=== PATIENT | female | born 1970 | race Caucasian/White ===

== ENCOUNTER → 2022-04-08 15:24 | Outpatient (CLI) | payer OTHER, SELFPAY ==
--- NOTE | ~2022-04-08 | US_ITS ---
EXAMINATION: US pelvic complete DATE: 04/08/2022 15:40 INDICATION: Menorrhagia Comparison:No prior studies for comparison. TECHNIQUE: Multiple transabdominal sonographic images of the pelvis performed. FINDINGS: The uterus measures 9.7 x 4.8 x 6.2 cm. There is uterine fibroid on the right measuring 3.8 x 3.6 x 2.8 cm. The endometrial complex measures 6 mm. The right ovary measures 1.8 x 1.3 x 1.4 cm and the left ovary measures 1.8 x 1.1 x 1 cm. There are small follicles in each ovary. Normal doppler signal in both ovaries. There is no free fluid in the pelvis. There are no abnormal masses seen on either side. IMPRESSION: 1. Uterine fibroid measuring up to 3.8 cm. Reviewed, dictated and finalized at location A.
== END ==
PROVIDERS: PCP Internal Medicine; Visit Provider Nurse Practitioner
DX: N93.8 Other specified abnormal uterine and vaginal bleeding (principal); D25.9 Leiomyoma of uterus, unspecified
CPT/HCPCS: 76856

== ENCOUNTER 2022-06-17 01:39 | Day surgery (SDC) | payer OTHER, SELFPAY ==
[2022-06-07 14:59] VITALS: BMI 21.2
--- NOTE | 2022-06-07 15:04 | PC.NURSE ---
Report to the Outpatient Waiting Room, entrance under the green pavilion located off [facility], at time 1000_ on date 06/17/22_. OR Time: 1200 ____. Time changes happen often and if your time is changed the preop area will call you the afternoon before. - You and your visitor will be asked to self-screen and do not enter if you have any COVID symptoms. - Only one visitor and NO children visitors are allowed at this time. - The patient visitor is requested to leave or wait in car when not with patient due to restrictions. - A mask is required within the hospital. Patients may have clear liquids (water, carbonated beverages, clear teas, apple juice) until 3 hours prior to surgery with a maximum of 20 ounces. - No food from midnight until time of surgery - Infants may have breast milk until 4 hours before surgery, infant formula 6 hours prior to surgery. - Children will be allowed to drink immediately following surgery. If applicable, please bring a bottle or sippy cup to assist with drinking. Juice, water, soda, and popsicles are readily available. For infants on formula, please bring formula the day of surgery. Pacifiers are allowed. Take the following medications with a SIP of water the morning of surgery: ____NONE Medications to discontinue per physician NONE Date to take last dose Please no make-up, nail bulgarian, hairspray, perfume, deodorant, or body powder the day of surgery. No jewelry (including any body piercings) or valuables the day of surgery, leave them at home. Please take a shower or bath the night before, or the morning of, surgery with an antibacterial soap. Wear comfortable, loose fitting clothing. Children are encouraged to wear pajamas. - Jewelry must be removed prior to entering the operating room. Rings and piercings that are not removed may be cut off. - The hospital will not accept responsibility for valuables. - Please leave all valuables, including medications, at home the day of surgery. If you are going home after surgery, a licensed route sales delivery driver must drive you home. - NO public transportation without another adult. - We recommend that an adult stay with you for 24 hours following discharge. - We also recommend that you do not drive, make important decision, drink alcoholic beverages, or take any drugs that were not prescribed by your health care provider for at least 24 hours after your discharge time. For Pediatric surgeries, we recommend two adults accompany the child home (only one inside the building at this time). Follow any additional instructions given to you from your surgeon. If you or anyone in your household have experienced Covid symptoms in the past week, please notify your surgeon or the nurse liaison at the phone number below for possible testing. Telephone instructions given to _PATIENT__and asked if any additional questions and then verbalized understanding. Patient advised to call surgeon office or pre surgery nurse liaison [phone] if any additional questions.
--- NOTE | 2022-06-17 08:32 | WPDHPUPDATE1 ---
History and Physical Update Update Date/Time: 06/17/22 08:32 History and Physical has been reviewed, including an updated exam of the patient. There are NO changes in the patient's condition. Risks, benefits, and alternatives have been discussed and questions answered. Patient agrees to proceed with procedure.
--- NOTE | 2022-06-17 08:32 | PM.HPGS ---
History of Present Illness History of Present Illness Consent: Risks, benefits, and alternatives have been discussed and questions answered. Patient agrees to proceed with procedure. Chief complaint: menorrhagia Narrative: Margarette Seo is a 52 year old female with abnormal uterine bleeding on oral contraceptives. Patient attempted to take oral contraceptives continuously and has had prolonged spotting. She had an episode of heavy bleeding in November of 2021 that required an emergency room visit. The patient continued to have abnormal bleeding after that point but did not follow up call the office since November of 2021. Patient presented for her annual exam in March of 2022 with the stated findings. Pelvic ultrasound at that time revealed fibroids. It was recommended to proceed with D&C hysteroscopy for further evaluation. Risks of infection, bleeding, perforation, and fluid imbalance were reviewed. Possible pathology was also discussed. Patient voiced understanding and agrees to proceed. Review of Systems Review of Systems: not repeated day of surgery; patient states no changes in status PMFSH Past Medical History Medical History (Updated 06/17/22 @ 08:37 by Amara Samano MD) (normal spontaneous vaginal delivery) X2 Surgical History Surgical History (Updated 06/17/22 @ 08:36 by Amara Samano MD) H/O neck surgery Previous back surgery Social History Social History Smoking status: Never smoker Alcohol intake: current Drinks per week: 3 Substance use: never Living arrangements: with family Meds Home Medications and Allergies Home Medications Medication Instructions Recorded Confirmed Type zolpidem 5 mg tablet 5 mg PO QHS PRN insomnia #30 tabs 05/23/22 06/07/22 Rx norethindrone-e.estradiol 1 tablet PO DAILY 06/07/22 06/07/22 History triphasic 0.5 mg/0.75 mg/1 mg-35 mcg tablet (Dasetta (28)) Allergies Allergy/AdvReac Type Severity Reaction Status Date / Time Penicillins AdvReac Mild Rash Verified 06/07/22 14:57 Exam Const: General: healthy appearing and alert Orientation/consciousness: patient oriented x3 GI: GI Palp: Yes Soft to palpation, No Tenderness to palpation present (GI) and No Palpable mass present : External Female Exam: normal external appearance Speculum Exam - Vagina: normal appearance of the vagina and normal vaginal discharge Speculum Exam - Cervix: normal appearance of the cervix Bimanual exam- vagina & uterus: uterine size normal and consistency normal Bimanual Exam- Adnexa, other: normal adnexae and No adnexal tenderness Neuro: General: patient oriented x3 Assessment and Plan Assessment and plan (1) Menorrhagia: Code(s): N92.0 - Excessive and frequent menstruation with regular cycle Status: Acute Assessment and Plan: Plan is to proceed with D&C hysteroscopy
[2022-06-17] MEDS: ACETAMINOPHEN 500 MG TABLET 1000 MG PO (09:58)
[2022-06-17 10:07] VITALS: BP 127/63; PULSE 79; RESP 16; TEMP 36.6; O2SAT 100
[2022-06-17] MEDS: LACTATED RINGERS 1,000 ML 30 ML IV CONT (10:21)
--- NOTE | 2022-06-17 10:56 | P.PNAN_ITS ---
Anes - Initial Pre Proc Eval Procedure: Operation Date: 06/17/22 12:00 Proposed Procedures p Hysteroscopy, Dilation and Curettage - Amara Samano MD Date/Time: 06/17/22 10:56 Surgeon: Amara Samano MD Pre Op Diagnosis: menorrhagia Patient Data Age: 52 Gender: F Height: 1.65 m Weight: 60.3 kg Last Vital Signs Temp 36.6 C 06/17/22 10:07 Pulse 79 06/17/22 10:07 Resp 16 06/17/22 10:07 BP 127/63 06/17/22 10:07 Pulse Ox 100 06/17/22 10:07 O2 Del Method Room Air 06/17/22 10:07 Allergies Allergy/AdvReac Type Severity Reaction Status Date / Time Penicillins AdvReac Mild Rash Verified 06/17/22 09:56 Home Medications Medication Instructions Recorded Confirmed Type zolpidem 5 mg tablet 5 mg PO QHS PRN insomnia #30 tabs 05/23/22 06/17/22 Rx norethindrone-e.estradiol 1 tablet PO DAILY 06/07/22 06/17/22 History triphasic 0.5 mg/0.75 mg/1 mg-35 mcg tablet (Dasetta (28)) Patient hx anesthesia problems: none Family hx anesthesia problems: none Results Review: All pre-operative results and documents have been reviewed as part of the pre- operative evaluation. PMFSH Past Medical History Medical History Insomnia Surgical History Surgical History H/O neck surgery Previous back surgery Social History Social History Smoking status: Never smoker Alcohol intake: current Drinks per week: 3 Substance use: never Living arrangements: with family Anes - Eval Final PreProcedure Day of Procedure 06/17/22 10:56 Patient weight: normal Heart: regular rate and rhythm Lungs: clear to auscultation Airway: Mallampati scale class II Neurological: alert and oriented Last oral intake: >/= 8 hours ASA classification: II Emergent: no Anesthetic plan: proceed Anesthesia type and monitoring: general GIVS and standard monitoring Results Review: All pre-operative results and documents have been reviewed as part of the pre- operative evaluation. Informed Consent: The patient's anesthetic plan and its attendant risks and benefits were discussed with the patient/family/POA. Questions were solicited and answers provided to the satisfaction of the patient/family/POA.
[2022-06-17] MEDS: LIDOCAINE HCL 1% PF 30 ML VIAL 10 ML INFILTRATE (11:55)
[2022-06-17] MEDS: KETOROLAC 30 MG/ML VIAL (*BKC) IV PUSH (12:08)
--- NOTE | 2022-06-17 12:16 | P.OP_ITS ---
Procedure Note - Detailed Date of Procedure 06/17/22 Pre-op Diagnosis menorrhagia Post-op Diagnosis Same Procedure Performed D&C hysteroscopy with MyoSure resection of polyp and half of a fibroid Surgeon Amara Samano MD Anesthesia MAC and Local Findings The uterus sounds to 10cm. There is a small fibroid on the left wall and a large fibroid on the left anterior uterine wall. Description of Procedure the patient was taken to the operating room and placed under anesthesia in the dorsal lithotomy position. She was prepped and draped in the usual sterile fashion. The bivalve speculum was placed in the vagina and the cervix grasped on the anterior lip with a tenaculum. The cervix is injected in each quadrant with 1% lidocaine. The uterus is sounded to 10cm. The cervix is serially dilated to an 8 Hegar. The diagnostic hysteroscope was placed with the above- stated findings. The extra-large MyoSure device was unavailable therefore the small MyoSure was utilized. Under direct visualization the polyp was removed in its entirety and approximately half of the fibroid is removed. The fluid deficit became 1500cc and the hysteroscopic portion of the procedure was stopped. The sharp curette and the myoma graspers were used to attempt to remove the remainder of the myoma however due to with sessile nature this was not successful. The sharp curette was used to curette the endometrium until a good uterine cry was noted in all areas. All instruments were then removed. Sponge, needle, and instrument counts are correct per the OR staff. The patient is awakened from anesthesia and taken to recovery in stable condition. Estimated Blood Loss 5 Drains No Packing No Pathology Yes ( Endometrial shavings and curet) Complications Other complications ( fluid imbalance) Condition Stable Disposition PACU
[2022-06-17 12:17] VITALS: BP 114/77; PULSE 80; RESP 16; O2SAT 100
[2022-06-17 12:45] VITALS: BP 112/81; PULSE 69; RESP 20
[2022-06-17] MEDS: oxyCODONE HCL (*CRX) 5 MG TAB IR PO (12:55)
[2022-06-17 13:15] VITALS: BP 112/81; PULSE 69; RESP 20
== END 2022-06-17 13:25 | disposition home or self-care (01) ==
PROVIDERS: PCP Family Medicine; Visit Provider Obstetrics & Gynecology Gynecology
PROC: 0U5B8ZZ Destruction of Endometrium, Via Natural or Artificial Opening Endoscopic (ICD-10-PCS; CPT 58563; principal; 2022-06-17 12:00)
DX: N92.0 Excessive and frequent menstruation with regular cycle (principal); D25.9 Leiomyoma of uterus, unspecified; N84.0 Polyp of corpus uteri
CPT/HCPCS: 58561; 88305; A9270; J1100; J1885; J2250; J2405; J2704; J3010; J7030; J7120